=== PATIENT | male | born 1980 | race Caucasian/White ===

== ENCOUNTER 2020-02-12 17:38 | Emergency (ER) | payer OTHER ==
[~2020-02-12] VITALS: Ht 177.8 cm; Wt 132.4 kg
[~2020-02-12 17:38] MED LIST: BRINTELLIX20 MG; ERGO400; LISI20; Omeprazole20 M1
[2020-02-12 18:25] LABS: Calcium, Ionized (POC) 1.17 mmol/L (1.10-1.46); Chloride (POC) 103 mmol/L (98-108); Creatinine (POC) 1.1 mg/dL (0.8-1.3); Glucose (ISTAT POC) 198 mg/dL (70-99); Potassium (POC) 4.1 mmol/L (3.5-5.5); Sodium (POC) 133 mmol/L (135-148); Total CO2 (POC) 20 mmol/L (21-32)
[2020-02-12 18:26] LABS: BASOPHILS ABSOLUTE AUTO 0.12 K/mm3 (0.00-0.23); BASOPHILS PERCENT AUTO 1 % (0-2); EOSINOPHILS ABSOLUTE AUTO 0.33 K/mm3 (0.00-0.68); EOSINOPHILS PERCENT AUTO 3 % (0-6); Hematocrit 45.5 % (37.0-53.0); Hemoglobin 14.7 g/dL (13.5-17.5); IMMATURE GRAN PERCENT AUTO 5 % (0-1); LYMPHOCYTES ABSOLUTE AUTO 2.69 K/mm3 (0.84-5.20); LYMPHOCYTES PERCENT AUTO 25 % (21-46); MONOCYTES ABSOLUTE AUTO 0.87 K/mm3 (0.16-1.47); MONOCYTES PERCENT AUTO 8 % (4-13); Mean Corpuscular HGB 28.3 pg (26.0-34.0); Mean Corpuscular HGB Conc 32.3 g/dL (31.5-36.5); Mean Corpuscular Volume 88 fL (80-100); Mean Platelet Volume 8.9 fL (9.1-12.4); NEUTROPHILS ABSOLUTE AUTO 6.48 K/mm3 (1.96-9.15); NEUTROPHILS PERCENT AUTO 59 % (41-73); Platelet Count 384 K/mm3 (150-400); RDW Coefficient Variation 13.7 % (11.7-14.2); RDW Standard Deviation 43.8 fL (35.1-46.3); Red Blood Cell Count 5.19 M/mm3 (4.30-5.90); White Blood Cell Count 10.99 K/mm3 (4.00-11.30)
[2020-02-12 18:44] LABS: Alanine Aminotransfer (ALT/SGP 74 U/L (12-78); Albumin, Blood 3.6 g/dL (3.4-5.0); Albumin/Globulin Ratio 0.7 (0.8-1.8); Alk Phos 113 U/L (50-136); Anion Gap 10 mmol/L (6-16); Aspartate Aminotrans (AST/SGOT 54 U/L (12-37); Bilirubin, Total 0.5 mg/dL (0.1-1.0); Blood Urea Nitrogen 18 mg/dL (8-24); Bun/Creatinine Ratio 15.4 (12.0-20.0); CO2, Blood 21 mmol/L (21-32); Calcium, Blood 10.3 mg/dL (8.5-10.1); Chloride, Blood 101 mmol/L (98-108); Creatinine, Blood 1.17 mg/dL (0.60-1.20); Globulin, Blood 5.3 g/dL (2.2-4.0); Glomerular Filtration Rate >60 (60-); Glucose, Blood 193 mg/dL (70-99); Potassium, Blood 4.1 mmol/L (3.5-5.5); Sodium, Blood 132 mmol/L (136-145); Total Protein, Blood 8.9 g/dL (6.4-8.2)
[2020-02-12] MEDS ORDERED: Percocet 10-321 EACH PO (21:11)
[2020-02-12] MEDS ORDERED: ONDA4ODT MM (21:11)
== END 2020-02-12 21:19 | disposition home or self-care (01) ==
LOC: ER 17:38
PROVIDERS: Emergency Medicine
DX: D73.5 Infarction of spleen (principal); R10.9 Unspecified abdominal pain; F41.9 Anxiety disorder, unspecified; M54.9 Dorsalgia, unspecified; G89.29 Other chronic pain; Z79.899 Other long term (current) drug therapy; Z98.84 Bariatric surgery status
CPT/HCPCS: 36415; 71260; 74177; 80047; 80053; 83690; 85014; 85025; 96361-59; 96374-59; 96375-59; 96376-59; 99284-25; A9270; J1170; J2270; J2405; J7030; Q9967

== ENCOUNTER 2020-02-29 00:29 | Day surgery (SDC) | payer OTHER ==
[~2020-02-29 00:29] MED LIST changes: +ONDA4ODT MM; +Percocet 10-321 EACH PO
[2020-03-02] MEDS ORDERED: DAPTOMYCIN350 MG IV (14:55)
== END 2020-02-29 14:25 | disposition home or self-care (01) ==
LOC: ATC 00:29
DX: K95.81 Infection due to other bariatric procedure (principal); B95.62 Methicillin resistant Staphylococcus aureus infection as the cause of diseases classified elsewhere
CPT/HCPCS: 96365; J0878

== ENCOUNTER 2020-03-01 00:05 | Day surgery (SDC) | payer OTHER ==
[2020-03-02] MEDS ORDERED: DAPTOMYCIN350 MG IV (14:55)
== END 2020-03-01 14:42 | disposition home or self-care (01) ==
LOC: ATC 00:05
DX: K95.81 Infection due to other bariatric procedure (principal); B95.62 Methicillin resistant Staphylococcus aureus infection as the cause of diseases classified elsewhere
CPT/HCPCS: 96365; J0878

== ENCOUNTER 2020-03-05 09:55 | Day surgery (SDC) | payer OTHER ==
[~2020-03-05 09:55] MED LIST changes: +DAPTOMYCIN350 MG IV
== END 2020-03-05 11:32 | disposition home or self-care (01) ==
LOC: ATC 09:55
DX: K95.81 Infection due to other bariatric procedure (principal); B95.62 Methicillin resistant Staphylococcus aureus infection as the cause of diseases classified elsewhere
CPT/HCPCS: 96365; J0878

== ENCOUNTER 2020-03-06 00:07 | Day surgery (SDC) | payer OTHER | END 2020-03-06 11:50 | disposition home or self-care (01) | LOC: ATC 00:07 | DX: K95.81 Infection due to other bariatric procedure (principal); B95.62 Methicillin resistant Staphylococcus aureus infection as the cause of diseases classified elsewhere | CPT/HCPCS: 96365; J0878 ==

== ENCOUNTER 2020-03-09 00:05 | Day surgery (SDC) | payer OTHER | END 2020-03-09 11:33 | disposition home or self-care (01) | LOC: ATC 00:05 | DX: K95.81 Infection due to other bariatric procedure (principal); B95.62 Methicillin resistant Staphylococcus aureus infection as the cause of diseases classified elsewhere | CPT/HCPCS: 96365; J0878 ==

== ENCOUNTER 2021-07-22 10:43 | Day surgery (SDC) | payer OTHER ==
[~2021-07-22] VITALS: Ht 175.3 cm; Wt 106.7 kg
[~2021-07-22 10:43] MED LIST changes: +ALLERCLEAR10 MG PO; +ALPR.5 PO; +B COMPLEX FORM0.4 MG PO; -BRINTELLIX20 MG; +BRINTELLIX20 MG PO; +ERGO50000 PO; +METF500 PO; -Omeprazole20 M1; +Omeprazole20 M1 PO; +PRAVASTATIN SOD10 MG PO; +ZOLP5 PO
--- NOTE | 2021-07-22 11:50 | NUR ---
07/22/21 1150 Tiara Aguilar ONE ATTEPMPTED BEIR BLOCK PLACEMENT IN RIGHT HAND, BY JAHAIRA BEIR BLOCK PLAC[facility]. PT TOLERATED BOTH ATTEMPTS WELL.
[2021-07-22] MEDS ORDERED: ALLEGRA ALLERGY60 MG PO (11:59)
--- NOTE | 2021-07-22 12:23 | NUR ---
07/22/21 1223 Yesy Sampson COMPLETE IN OR BY DR DSOUZA. PT RHODA, S.
== END 2021-07-22 13:40 | disposition home or self-care (01) ==
LOC: ORSCSDS 10:43
PROVIDERS: Orthopaedic Surgery
PROC: 01N50ZZ Release Median Nerve, Open Approach (ICD-10-PCS; principal; 2021-07-22 12:00)
DX: G56.01 Carpal tunnel syndrome, right upper limb (principal); I10 Essential (primary) hypertension; G47.33 Obstructive sleep apnea (adult) (pediatric); E11.9 Type 2 diabetes mellitus without complications; N18.9 Chronic kidney disease, unspecified; K21.9 Gastro-esophageal reflux disease without esophagitis; E78.5 Hyperlipidemia, unspecified; Z79.84 Long term (current) use of oral hypoglycemic drugs; Z79.899 Other long term (current) drug therapy
CPT/HCPCS: 82947; J0690; J1100; J2250; J2405; J2704; J3010; J7120

== ENCOUNTER 2021-09-16 13:46 | Day surgery (SDC) | payer OTHER ==
[~2021-09-16] VITALS: Ht 177.8 cm; Wt 109.0 kg
[~2021-09-16 13:46] MED LIST changes: +ALLEGRA ALLERGY60 MG PO
== END 2021-09-16 16:40 | disposition home or self-care (01) ==
LOC: ORSCSDS 13:46
PROVIDERS: Orthopaedic Surgery
PROC: 01S40ZZ Reposition Ulnar Nerve, Open Approach (ICD-10-PCS; principal; 2021-09-16 14:15)
PROC: 01N50ZZ Release Median Nerve, Open Approach (ICD-10-PCS; principal; 2021-09-16 14:15)
DX: G56.02 Carpal tunnel syndrome, left upper limb (principal); G56.22 Lesion of ulnar nerve, left upper limb; I10 Essential (primary) hypertension; G47.33 Obstructive sleep apnea (adult) (pediatric); K21.9 Gastro-esophageal reflux disease without esophagitis; E11.9 Type 2 diabetes mellitus without complications; Z79.899 Other long term (current) drug therapy; E66.9 Obesity, unspecified; Z68.34 Body mass index [BMI] 34.0-34.9, adult
CPT/HCPCS: 82947; J0171; J0690; J1100; J1885; J2250; J2405; J2704; J3010; J7120

== ENCOUNTER 2022-01-16 15:28 | Emergency (ER) | payer OTHER ==
[~2022-01-16] VITALS: Ht 175.3 cm; Wt 108.9 kg
[2022-01-16 16:34] LABS: BASOPHILS ABSOLUTE AUTO 0.15 K/mm3 (0.00-0.23); BASOPHILS PERCENT AUTO 1 % (0-2); EOSINOPHILS ABSOLUTE AUTO 0.46 K/mm3 (0.00-0.68); EOSINOPHILS PERCENT AUTO 3 % (0-6); Hematocrit 49.4 % (37.0-53.0); Hemoglobin 16.2 g/dL (13.5-17.5); IMMATURE GRAN ABSOLUTE AUTO 0.25 K/mm3 (0.00-0.10); IMMATURE GRAN PERCENT AUTO 1 % (0-1); LYMPHOCYTES ABSOLUTE AUTO 2.13 K/mm3 (0.84-5.20); LYMPHOCYTES PERCENT AUTO 12 % (21-46); MONOCYTES ABSOLUTE AUTO 0.87 K/mm3 (0.16-1.47); MONOCYTES PERCENT AUTO 5 % (4-13); Mean Corpuscular HGB 29.7 pg (26.0-34.0); Mean Corpuscular HGB Conc 32.8 g/dL (31.5-36.5); Mean Corpuscular Volume 91 fL (80-100); Mean Platelet Volume 9.3 fL (9.1-12.4); NEUTROPHILS ABSOLUTE AUTO 13.87 K/mm3 (1.96-9.15); NEUTROPHILS PERCENT AUTO 78 % (41-73); Platelet Count 259 K/mm3 (150-400); RDW Coefficient Variation 14.1 % (11.7-14.2); RDW Standard Deviation 46.8 fL (35.1-46.3); Red Blood Cell Count 5.45 M/mm3 (4.30-5.90); White Blood Cell Count 17.73 K/mm3 (4.00-11.30)
[2022-01-16 16:52] LABS: Albumin, Blood 3.9 g/dL (3.4-5.0); Bilirubin, Total 0.5 mg/dL (0.1-1.0); Bun/Creatinine Ratio 14.9 (12.0-20.0); Creatinine, Blood 0.94 mg/dL (0.60-1.20); Globulin, Blood 4.1 g/dL (2.2-4.0); Potassium, Blood 4.2 mmol/L (3.5-5.5)
[2022-01-16] MEDS ORDERED: ONDA4ODT MM (20:15)
== END 2022-01-16 20:44 | disposition home or self-care (01) ==
LOC: ER 15:28
PROVIDERS: Physician Assistant
DX: K21.9 Gastro-esophageal reflux disease without esophagitis (principal); K44.9 Diaphragmatic hernia without obstruction or gangrene; D72.829 Elevated white blood cell count, unspecified; F41.9 Anxiety disorder, unspecified; Z79.899 Other long term (current) drug therapy; Z79.84 Long term (current) use of oral hypoglycemic drugs; Z98.84 Bariatric surgery status
CPT/HCPCS: 36415; 71046; 74177; 80053; 83735; 85025; J2405; J7030; Q9967

== ENCOUNTER 2022-04-04 10:11 | Day surgery (SDC) | payer OTHER ==
[~2022-04-04] VITALS: Ht 175.3 cm; Wt 111.2 kg
[2022-04-04] MEDS ORDERED: FAMO20 (10:40)
--- NOTE | 2022-04-04 12:33 | NUR ---
04/04/22 1233 Reena Isaacs TIME OUT TO VERIFY CORRECT PT, SITE, PROCEEDURE AND ALLERGIES. PT ELECTED TO PROCEED WTIH SHOULDER BLOCK. RELEAXING MEDICATION PROVIDED BY DR. REAVES AT 1220. PT TOLERATED WELL. VITAL SIGNS STABLE THROUGHOUT THE PROCEEDURE
--- NOTE | 2022-04-04 13:04 | NUR ---
04/04/22 1304 Yesy Sampson 10MLS OF LOCAL POURED ONTO FIELD FOR USE DURING CASE. 1MG OF EPI ADDED TO 3 BAGS OF 3000ML OF LR TO USE FOR IRRIGATION DURING CASE.
--- NOTE | 2022-04-04 14:27 | NUR ---
04/04/22 1427 Mike Talbot PTIS DOING GREAT, VVS NO PAIN NO NAUSEA.
== END 2022-04-04 14:43 | disposition home or self-care (01) ==
LOC: ORSCSDS 10:11
PROVIDERS: Orthopaedic Surgery
PROC: 3E0U3GC Introduction of Other Therapeutic Substance into Joints, Percutaneous Approach (ICD-10-PCS; principal; 2022-04-04 11:45)
PROC: 0LQ24ZZ Repair Left Shoulder Tendon, Percutaneous Endoscopic Approach (ICD-10-PCS; principal; 2022-04-04 11:45)
PROC: 0RNK4ZZ Release Left Shoulder Joint, Percutaneous Endoscopic Approach (ICD-10-PCS; principal; 2022-04-04 11:45)
DX: M75.112 Incomplete rotator cuff tear or rupture of left shoulder, not specified as traumatic (principal); M75.22 Bicipital tendinitis, left shoulder; M75.42 Impingement syndrome of left shoulder; E11.9 Type 2 diabetes mellitus without complications; G47.33 Obstructive sleep apnea (adult) (pediatric); K21.9 Gastro-esophageal reflux disease without esophagitis; E66.9 Obesity, unspecified; Z68.36 Body mass index [BMI] 36.0-36.9, adult; Z79.84 Long term (current) use of oral hypoglycemic drugs; Z79.899 Other long term (current) drug therapy
CPT/HCPCS: 29827; 29826; 0232T; 82947; C1713; J0171; J0690; J1100; J2250; J2405; J2704; J3010; J7120

== ENCOUNTER 2022-12-29 10:34 | Day surgery (SDC) | payer OTHER ==
[~2022-12-29] VITALS: Ht 177.8 cm; Wt 225.0 kg
[~2022-12-29 10:34] MED LIST changes: +FAMO20
--- NOTE | 2022-12-29 11:21 | NUR ---
12/29/22 1121 Tiara Aguilar CALL LIGHT WITHIN REACH. , BENITA, AT BEDSIDE.
--- NOTE | 2022-12-29 13:36 | NUR ---
12/29/22 1336 Gabriella Bustillos 0.1ML OF EPI 1MG/ML ADDED TO 20ML ROPIVICAINE 0.5% TO CREATE A LOCAL SOLUTION OF ROPIVIVIANE 0.5% WITH EPI 1:200,000.
[2022-12-29 14:56] VITALS: BP 141/87
== END 2022-12-29 15:30 | disposition home or self-care (01) ==
LOC: ORSCSDS 10:34
PROVIDERS: Orthopaedic Surgery
PROC: 01S40ZZ Reposition Ulnar Nerve, Open Approach (ICD-10-PCS; principal; 2022-12-29 12:00)
DX: G56.21 Lesion of ulnar nerve, right upper limb (principal); E11.9 Type 2 diabetes mellitus without complications; K21.9 Gastro-esophageal reflux disease without esophagitis; Z79.84 Long term (current) use of oral hypoglycemic drugs; Z79.899 Other long term (current) drug therapy
CPT/HCPCS: 82947; A9270; J0171; J0690; J1100; J2250; J2405; J2704; J2795; J3010; J7120

== ENCOUNTER 2023-01-26 11:48 | Day surgery (SDC) | payer OTHER ==
[~2023-01-26] VITALS: Ht 177.8 cm; Wt 102.3 kg
[2023-01-26] MEDS ORDERED: SULFAMETHOXAZO1 EAC1 PO (12:18)
[2023-01-26 15:30] VITALS: BP 131/97
--- NOTE | 2023-01-26 16:05 | NUR ---
01/26/23 1605 Mike Talbot IV REMOVED INTACT. SITE WNL. PT REPORTED 4/10 PAIN UPON DISCHARGE BUT DESCRIBED PAIN TOLERABLE.
== END 2023-01-26 16:00 | disposition home or self-care (01) ==
LOC: ORSCSDS 11:48
PROVIDERS: Orthopaedic Surgery
PROC: 0JBG0ZZ Excision of Right Lower Arm Subcutaneous Tissue and Fascia, Open Approach (ICD-10-PCS; principal; 2023-01-26 13:00)
DX: S51.0 Open wound of elbow (principal); G47.33 Obstructive sleep apnea (adult) (pediatric); E11.9 Type 2 diabetes mellitus without complications; E78.00 Pure hypercholesterolemia, unspecified; F32.A Depression, unspecified; Z79.899 Other long term (current) drug therapy; K21.9 Gastro-esophageal reflux disease without esophagitis; Z98.84 Bariatric surgery status; Z79.84 Long term (current) use of oral hypoglycemic drugs
CPT/HCPCS: 82947; 87070; 87075; 87205; A9270; J0690; J1100; J2405; J2704; J3010; J7120

== ENCOUNTER 2023-04-15 01:30 | Inpatient (IN) | payer OTHER ==
[~2023-04-15] VITALS: Ht 177.8 cm; Wt 106.2 kg
[~2023-04-15 01:30] MED LIST changes: +SULFAMETHOXAZO1 EAC1 PO
[2023-04-15 02:43] LABS: BASOPHILS ABSOLUTE AUTO 0.06 K/mm3 (0.00-0.23); BASOPHILS PERCENT AUTO 0 % (0-2); EOSINOPHILS ABSOLUTE AUTO 0.24 K/mm3 (0.00-0.68); EOSINOPHILS PERCENT AUTO 2 % (0-6); Hematocrit 42.6 % (37.0-53.0); Hemoglobin 14.7 g/dL (13.5-17.5); IMMATURE GRAN ABSOLUTE AUTO 0.14 K/mm3 (0.00-0.10); IMMATURE GRAN PERCENT AUTO 1 % (0-1); LYMPHOCYTES PERCENT AUTO 7 % (21-46); MONOCYTES ABSOLUTE AUTO 1.14 K/mm3 (0.16-1.47); MONOCYTES PERCENT AUTO 8 % (4-13); Mean Corpuscular HGB 29.5 pg (26.0-34.0); Mean Corpuscular HGB Conc 34.5 g/dL (31.5-36.5); Mean Corpuscular Volume 86 fL (80-100); NEUTROPHILS ABSOLUTE AUTO 11.37 K/mm3 (1.96-9.15); NEUTROPHILS PERCENT AUTO 82 % (41-73); Platelet Count 308 K/mm3 (150-400); RDW Coefficient Variation 13.6 % (11.7-14.2); RDW Standard Deviation 42.3 fL (35.1-46.3); Red Blood Cell Count 4.98 M/mm3 (4.30-5.90); White Blood Cell Count 13.95 K/mm3 (4.00-11.30)
[2023-04-15 03:03] LABS: Albumin, Blood 3.5 g/dL (3.4-5.0); Albumin/Globulin Ratio 0.9 (0.8-1.8); Bun/Creatinine Ratio 13.7 (12.0-20.0); Calcium, Blood 8.7 mg/dL (8.5-10.1); Creatinine, Blood 0.73 mg/dL (0.60-1.20); Globulin, Blood 4.1 g/dL (2.2-4.0); Potassium, Blood 3.9 mmol/L (3.5-5.5); Total Protein, Blood 7.6 g/dL (6.4-8.2)
[2023-04-15 03:45] LABS: C-REACTIVE PROTEIN, EXT RANGE 12.3 mg/dL (0.000-0.300)
[2023-04-15 04:20] LABS: D-Dimer, Quantitative 4.95 mg/L FEU (0.00-0.52); International Normalized Ratio 1.09; Prothrombin Time Results 11.4 Sec (9.7-11.5)
[2023-04-15] MEDS ORDERED: METFORMIN HCL500 M2 (06:53)
[2023-04-15] MEDS ORDERED: [UNRECOGNIZED DRUG - CODE] (06:54)
[2023-04-15] MEDS ORDERED: ELIQUIS2.5 M1 (06:54)
[2023-04-15] MEDS ORDERED: Methocarbamol500 MG (06:55)
[2023-04-15 09:30] VITALS: BP 138/98
[2023-04-15 10:58] LABS: Performing Lab BLOODWORKS; Test Name ABID
[2023-04-15 15:40] VITALS: BP 129/81
--- NOTE | 2023-04-15 17:38 | NUR ---
SHIFT SUMMARY PATIENT IS ALERT AND ORIENTED. PATIENT HAS HAD NO ACUTE EVENTS THIS SHIFT. VITAL SIGNS REVIEWED. PATIENT IS A RECENT ADMIT TODAY. PATIENT HAS REPORTED PAIN AND MEDICATED PER EMAR. PATIENT HAS NOT COMPLAINED OF SOB, NAUSEA, OR VOMITTING. PATIENT HAS TOLERATED FULL LIQUID DIET. BED IN LOCKED AND LOWEST POSITION. CALL LIGHT IN PLACE. WILL MONITOR UNTIL SHIFT CHANGE.
--- NOTE | 2023-04-15 19:09 | NUR ---
NURSE NOTE AWAKE. CHEERFUL AFFECT. ALERT AND ORIENTED. O2 PER NC AT 1L/MIN. O2 SATS OVER 90%. NO NOTED SOB. WILL TITER O2 DOWN. O2 DROPPED TO 0L/MIN - ROOM AIR. WILL RE CHECK SATS FOR FOLLOW UP. RECEIVED FIRE IGNITION TEACHING EARLIER. CALL LIGHT IN REACH. WILL MONITOR
[2023-04-15 19:52] VITALS: BP 146/86
--- NOTE | 2023-04-16 03:56 | NUR ---
BASS FISHER SUMMARY VSS. WAS ADMITTED FOR GENREALIZED WEAKNESS AND FEVER. HAS BEEN AFEBRILE THIS SHIFT. REMAINS WEAK, BUT ABLE TO AMBULATE ABOUT ROOM WITHOUT NOTED DISTRESS. WAS VISITED BY FAMILY MEMBERS EARLIER, REPORTED THAT PT NEEDS TO BE ON HIGH PROTEIN, LOW SUGAR LIQUID DIET SINCE HE HAD RECENT GASTRIC SURGERY. VOICED SHE WOULD RETURN TOMORROW AND WOULD PROBABLY DISCUSS IT WITH AM STAFF/DIETITICIAN THEN. RECEIVING ANTIBIOTICS AND ANALGESICS SEE MAR FOR DETAILS. NOTED DIMINISHED LUNG SOUNDS OF RIGHT SIDE PER AUSCULTATION. ALERT AND ORIENTED. HAS BEEN RESTING QUIETLY WITH FEW INTERRUPTIONS. CALL LIGHT IN REACH. ON ROOM AIR AND O2 SATS REMAIN IN THE 90'S. WILL CONTINUE TO MONITOR
[2023-04-16 04:36] VITALS: BP 115/66
[2023-04-16 04:46] LABS: Vancomycin, Trough 9.5 ug/mL (5.0-10.0)
[2023-04-16 07:38] VITALS: BP 104/63
[2023-04-16 10:19] LABS: BASOPHILS ABSOLUTE AUTO 0.03 K/mm3 (0.00-0.23); BASOPHILS PERCENT AUTO 0 % (0-2); EOSINOPHILS ABSOLUTE AUTO 0.28 K/mm3 (0.00-0.68); EOSINOPHILS PERCENT AUTO 3 % (0-6); Hematocrit 37.2 % (37.0-53.0); Hemoglobin 12.5 g/dL (13.5-17.5); IMMATURE GRAN ABSOLUTE AUTO 0.16 K/mm3 (0.00-0.10); IMMATURE GRAN PERCENT AUTO 2 % (0-1); LYMPHOCYTES ABSOLUTE AUTO 1.02 K/mm3 (0.84-5.20); LYMPHOCYTES PERCENT AUTO 10 % (21-46); MONOCYTES ABSOLUTE AUTO 1.05 K/mm3 (0.16-1.47); MONOCYTES PERCENT AUTO 10 % (4-13); Mean Corpuscular HGB 29.5 pg (26.0-34.0); Mean Corpuscular HGB Conc 33.6 g/dL (31.5-36.5); Mean Corpuscular Volume 88 fL (80-100); Mean Platelet Volume 9.5 fL (9.1-12.4); NEUTROPHILS ABSOLUTE AUTO 7.88 K/mm3 (1.96-9.15); NEUTROPHILS PERCENT AUTO 76 % (41-73); Platelet Count 258 K/mm3 (150-400); RDW Coefficient Variation 13.5 % (11.7-14.2); RDW Standard Deviation 43.5 fL (35.1-46.3); Red Blood Cell Count 4.24 M/mm3 (4.30-5.90); White Blood Cell Count 10.42 K/mm3 (4.00-11.30)
[2023-04-16 10:40] LABS: Albumin/Globulin Ratio 0.8 (0.8-1.8); Bilirubin, Total 0.7 mg/dL (0.1-1.0); Bun/Creatinine Ratio 8.2 (12.0-20.0); Calcium, Blood 8.7 mg/dL (8.5-10.1); Creatinine, Blood 0.85 mg/dL (0.60-1.20); Globulin, Blood 3.8 g/dL (2.2-4.0); Potassium, Blood 4.2 mmol/L (3.5-5.5); Total Protein, Blood 6.8 g/dL (6.4-8.2)
[2023-04-16 16:07] VITALS: BP 147/89
--- NOTE | 2023-04-16 16:22 | NUR ---
SHIFT SUMMARY PATIENT IS ALERT AND ORIENTED. PATIENT HAS NOT HAD AND ACUTE EVENTS THIS SHIFT. VITAL SIGNS REVIEWED. PATIENT IS STILL ON FULL LIQUIDS. PATIENT HAS SEEN DIETITION PER PT REQUEST AND DIET UPDATED. PATIENT HAS COMPLAINED OF PAIN AND HEARTBURN, MEDICATED PER EMAR. PATIENT IS DISCONNECTED FROM FLUIDS PER PATIENT REQUEST DUE TO ENOUGH PO INTAKE. BED IN LOCKED AND LOWEST POSITION. CALL LIGHT IN PLACE. WILL MONITOR UNTIL SHIFT CHANGE.
--- NOTE | 2023-04-16 19:47 | NUR ---
NURSE NOTE AWAKE. UP AD MELIDA. RECEIVED ZOFRAN AND PAIN MED PER REQUEST. VOICED ABLE TO DRINK MORE THAN YESTERDAY BUT STILL HAVING SOME DISCOMFORT. VISITED. JOKES WITH NURSE. RECEIVED FIRE IGNITION/PREVENTION TEACHING EARLIER. CALL LIGHT IN REACH. WILL CONTINUE TO MONITOR
[2023-04-16 21:16] VITALS: BP 139/90
--- NOTE | 2023-04-17 03:31 | NUR ---
GROUNDS MANAGER SUMMARY BP SLIGHTLY ELEVATED, OTHERWISE VSS. TOLERATING PO FLUIDS BETTER THAN NOTED 24 HR AGO, BUT STILL HAVING SOME NAUSEA AND ABD PAIN. RECEIVED ZOFRAN AND PAIN MEDS, MEDICATIONS EFFECTIVE. VISITED EARLIER. CONTINUES TO RECEIVE IV ANTIBIOTICS - SEE NOV FOR DETAILS. HAS BEEN RESTING QUIETLY WITH FEW INTERUPTIONS SINCE HS. UP AD MELIDA, LESS FATIGUED THAN NOTED YESTERDAY. CALL LIGHT IN REACH. WILL CONTINUE TO MONITOR.
[2023-04-17 04:33] LABS: Vancomycin, Trough 13.9 ug/mL (5.0-10.0)
[2023-04-17 05:19] VITALS: BP 98/61
[2023-04-17 05:36] LABS: BASOPHILS ABSOLUTE AUTO 0.04 K/mm3 (0.00-0.23); BASOPHILS PERCENT AUTO 0 % (0-2); EOSINOPHILS ABSOLUTE AUTO 0.56 K/mm3 (0.00-0.68); EOSINOPHILS PERCENT AUTO 6 % (0-6); Hematocrit 35.2 % (37.0-53.0); Hemoglobin 11.8 g/dL (13.5-17.5); IMMATURE GRAN ABSOLUTE AUTO 0.16 K/mm3 (0.00-0.10); IMMATURE GRAN PERCENT AUTO 2 % (0-1); LYMPHOCYTES PERCENT AUTO 15 % (21-46); MONOCYTES ABSOLUTE AUTO 1.26 K/mm3 (0.16-1.47); MONOCYTES PERCENT AUTO 14 % (4-13); Mean Corpuscular HGB 29.4 pg (26.0-34.0); Mean Corpuscular HGB Conc 33.5 g/dL (31.5-36.5); Mean Corpuscular Volume 88 fL (80-100); NEUTROPHILS ABSOLUTE AUTO 5.92 K/mm3 (1.96-9.15); NEUTROPHILS PERCENT AUTO 63 % (41-73); Platelet Count 252 K/mm3 (150-400); RDW Coefficient Variation 13.5 % (11.7-14.2); RDW Standard Deviation 43.4 fL (35.1-46.3); Red Blood Cell Count 4.02 M/mm3 (4.30-5.90); White Blood Cell Count 9.34 K/mm3 (4.00-11.30)
[2023-04-17 05:58] LABS: Bun/Creatinine Ratio 9.6 (12.0-20.0); Calcium, Blood 8.3 mg/dL (8.5-10.1); Creatinine, Blood 0.83 mg/dL (0.60-1.20); Potassium, Blood 4.1 mmol/L (3.5-5.5)
[2023-04-17 07:18] VITALS: BP 101/48
[2023-04-17] MEDS ORDERED: AMOCLA875 PO (13:54)
--- NOTE | 2023-04-17 16:33 | NUR ---
DISCHARGE SUMMARY PT AXO PLEASANT AND COOPERATIVE WITH CARE. PT DISCHARGED TO HOME. PT LEFT ROOM PRIOR TO THIS NOTE VIA WHEELCHAIR WITH DISTRICT MANAGER PRIMARY [employer] SALES [employer]. ALL DISCHARGE INSTRUCTIONS DISCUSSED, ALL QUESTIONS ANSWERED. IV DC'D AND BELONGINGS RETURNED. PT AGREES TO FOLLOW UP WITH PCP ORDERED. PT ALSO AGREES TO GEM SETTER MEDICATIONS AND TAKE THEM PRESCIBED.
== END 2023-04-17 16:12 | disposition home or self-care (01) | DRG 200 ==
LOC: ER 01:30 → MEDS 01:32 → ENPENDDIS 04-17 13:49 → MEDS 04-17 16:12
PROVIDERS: Emergency Medicine; Internal Medicine; ADMIT Family Medicine
DX: J95.811 Postprocedural pneumothorax (principal); R65.10 Systemic inflammatory response syndrome (SIRS) of non-infectious origin without acute organ dysfunction; K21.9 Gastro-esophageal reflux disease without esophagitis; I10 Essential (primary) hypertension; E11.9 Type 2 diabetes mellitus without complications; F41.8 Other specified anxiety disorders; G89.18 Other acute postprocedural pain; M50.30 Other cervical disc degeneration, unspecified cervical region; E78.5 Hyperlipidemia, unspecified; G47.33 Obstructive sleep apnea (adult) (pediatric); E66.9 Obesity, unspecified; Z98.84 Bariatric surgery status; Z79.899 Other long term (current) drug therapy; Z79.84 Long term (current) use of oral hypoglycemic drugs; Z68.32 Body mass index [BMI] 32.0-32.9, adult
CPT/HCPCS: 36415; 71045; 71260; 74177; 80048; 80053; 80202; 82947; 83605; 83880; 84484; 85025; 85379; 85610; 85730; 86140; 93005; 93010; 94760; 96365-59; 96366; 96366-59; 96367-59; 96368; 96375; 96375-59; 96376-59; 99285-25; A9270; C9113; G0378; J0696; J1170; J2405; J3370; J7030; J7050; Q9967

== ENCOUNTER 2023-08-16 06:34 | Day surgery (SDC) | payer OTHER ==
[~2023-08-16] VITALS: Ht 177.8 cm; Wt 96.9 kg
[~2023-08-16 06:34] MED LIST changes: +AMOCLA875 PO; +ELIQUIS2.5 M1; +METFORMIN HCL500 M2; +Methocarbamol500 MG; +[UNRECOGNIZED DRUG - CODE]
[2023-08-16] MEDS ORDERED: Budeprion Xl300 MG PO (06:56)
[2023-08-16] MEDS ORDERED: FAMO20 PO (06:57)
--- NOTE | 2023-08-16 09:00 | NUR ---
08/16/23 0900 Netta Nunez PT ON TMAX BED IN BEACHCHAIR POSITION WITH WEDGE UNDER LEGS AND BUTTOCKS. HEAD IS ON HEADREST WITH FOAM HEADREST SECURING IT. LEFT ARM IS ON ARM BOARD WITH GEL PAD AND SAFETY STRAP. SHORT SIDE BOLSTERS ARE ON THE LEFT AND RIGHT SIDE OF ABDOMEN TO SECURE PT TO TMAX. TWO SAFETY STRAPS WITH GEL PADS UNDER THEM ON THIGHS AND BELOW THE KNEE TO SECURE TO BED
[2023-08-16 09:39] VITALS: BP 131/85
== END 2023-08-16 11:00 | disposition home or self-care (01) ==
LOC: ORSCSDS 06:34
PROVIDERS: Orthopaedic Surgery Sports Medicine
PROC: 0RBJ4ZZ Excision of Right Shoulder Joint, Percutaneous Endoscopic Approach (ICD-10-PCS; principal; 2023-08-16 08:00)
PROC: 0PB94ZZ Excision of Right Clavicle, Percutaneous Endoscopic Approach (ICD-10-PCS; principal; 2023-08-16 08:00)
DX: M19.011 Primary osteoarthritis, right shoulder (principal); M75.41 Impingement syndrome of right shoulder; M25.511 Pain in right shoulder; E11.9 Type 2 diabetes mellitus without complications; K21.9 Gastro-esophageal reflux disease without esophagitis; F41.9 Anxiety disorder, unspecified; E78.5 Hyperlipidemia, unspecified; I10 Essential (primary) hypertension; G47.33 Obstructive sleep apnea (adult) (pediatric); Z79.84 Long term (current) use of oral hypoglycemic drugs; Z79.899 Other long term (current) drug therapy
CPT/HCPCS: 82947; J0171; J0690; J1100; J1885; J2250; J2371; J2405; J2704; J2710; J3010; J7120

== ENCOUNTER 2024-06-22 21:47 | Emergency (ER) | payer OTHER ==
[~2024-06-22] VITALS: Ht 175.3 cm; Wt 90.7 kg
[~2024-06-22 21:47] MED LIST changes: +Budeprion Xl300 MG PO; +FAMO20 PO
[2024-06-23] MEDS ORDERED: Diphth,Pertuss(Acell),Tet Vac 0.5 ML VIAL IM ONE (02:00)
[2024-06-23] MEDS ORDERED: Acetaminophen 500 MG Tab PO ONE (02:00)
[2024-06-23 05:45] VITALS: BP 100/71
[2024-06-23] MEDS ORDERED: ACET500 PO (06:12)
== END 2024-06-23 06:20 | disposition home or self-care (01) ==
LOC: ER 21:47
DX: S32.039A Unspecified fracture of third lumbar vertebra, initial encounter for closed fracture (principal); E11.9 Type 2 diabetes mellitus without complications; I10 Essential (primary) hypertension; E78.5 Hyperlipidemia, unspecified; K21.9 Gastro-esophageal reflux disease without esophagitis; Z98.84 Bariatric surgery status; Z98.890 Other specified postprocedural states; Z79.84 Long term (current) use of oral hypoglycemic drugs; Z79.899 Other long term (current) drug therapy; W18.30XA Fall on same level, unspecified, initial encounter
CPT/HCPCS: 72131; 90471; 90715; 99283-25; A9270; Q9967

== ENCOUNTER 2025-01-06 06:03 | Day surgery (SDC) | payer OTHER ==
[~2025-01-06] VITALS: Ht 175.3 cm; Wt 92.9 kg
[~2025-01-06 06:03] MED LIST changes: +ACET500 PO
[2025-01-06] MEDS ORDERED: CeFAZolin Sodium 2,000 MG VIAL ONE (06:19)
[2025-01-06] MEDS ORDERED: Tranexamic Acid 100 ML IV ONE (06:20)
[2025-01-06] MEDS ORDERED: FentaNYL Citrate 50 MCG/ML 2 ML Injection ONE (06:32)
[2025-01-06] MEDS ORDERED: Sugammadex Sodium 200 MG/2ML SDV (100 MG/ML) ONE (06:32)
[2025-01-06] MEDS ORDERED: propofoL 40 ML IV ONE (06:32)
[2025-01-06] MEDS ORDERED: Midazolam HCl 1MG / ML 2ML Vial ONE (06:32)
[2025-01-06] MEDS ORDERED: Ondansetron HCl 2 MG / ML 2ML Vial ONE (06:33)
[2025-01-06] MEDS ORDERED: Phenylephrine HCl 100 MCG/ML-NS 10MLSYR (1MG/10ML) ONE (06:33)
[2025-01-06] MEDS ORDERED: Rocuronium Bromide 10 MG/ML 5ML Injection IV ONE ×2 (06:33→09:22)
[2025-01-06] MEDS ORDERED: Dexamethasone Sod Phos 10 MG/ML 1ML VIAL ONE (06:33)
[2025-01-06] MEDS ORDERED: LAMO25 (06:36)
[2025-01-06] MEDS ORDERED: Lactated Ringer's 1,000 ML IV ONE ×3 (06:51→10:00)
[2025-01-06] MEDS ORDERED: EPINEPhrine HCl 1 MG/ML 1ML Amp ONE (07:00)
[2025-01-06] MEDS ORDERED: Lidocaine 1%-Epineph 1:100000 20 ML MDV ONE (07:00)
--- NOTE | 2025-01-06 07:36 | NUR ---
01/06/25 0736 Charley Hdz NERVE BLOCK PERFORMED BY DR. DONIS. PT TOLERATED BLOCK WELL. VS MONITORED THROUGHOUT THE PROCEDURE. SP02 STABLE AT 99-100%. TIME OUT AT: 717 START TIME: 725 END TIME: 730
[2025-01-06] MEDS ORDERED: Glycopyrrolate 0.2 MG/ML 5ML VIAL ONE (08:24)
[2025-01-06] MEDS ORDERED: propofoL 20 ML IV ONE (09:14)
[2025-01-06] MEDS ORDERED: ePHEDrine Sulfate 50 MG/ML 1ML Injection ONE (09:25)
--- NOTE | 2025-01-06 10:27 | NUR ---
01/06/25 1027 KAIA JOYNER PT CAME OUT WITH ORAL AIRWAY. DR DONIS REMOVED ONCE IN PACU. PT WAS ON NASAL CANNULA AT 3L. I REPLACED IT WITH FACE TENT @ 10L. CURRENTLY O2 SAT IS 96%
--- NOTE | 2025-01-06 11:15 | NUR ---
01/06/[address] IN TO SPEAK WITH PATIENT. STATES THAT HE SENT RX TO [facility]. EATING AND DRINKING WO DIFF. O2 SAT CURRENTLY 965 ON RA
[2025-01-06 11:29] VITALS: BP 141/93
[2025-01-06] MEDS ORDERED: OxyCODONE HCL 5 MG TAB ONE (11:52)
== END 2025-01-06 12:11 | disposition home or self-care (01) ==
LOC: ORSCSDS 06:03
PROVIDERS: Orthopaedic Surgery Sports Medicine
PROC: 0LM24ZZ Reattachment of Left Shoulder Tendon, Percutaneous Endoscopic Approach (ICD-10-PCS; principal; 2025-01-06 07:30)
PROC: 0PBB4ZZ Excision of Left Clavicle, Percutaneous Endoscopic Approach (ICD-10-PCS; principal; 2025-01-06 07:30)
DX: M75.122 Complete rotator cuff tear or rupture of left shoulder, not specified as traumatic (principal); M75.42 Impingement syndrome of left shoulder; M25.512 Pain in left shoulder; I10 Essential (primary) hypertension; G47.33 Obstructive sleep apnea (adult) (pediatric); K21.9 Gastro-esophageal reflux disease without esophagitis; E11.9 Type 2 diabetes mellitus without complications; F41.9 Anxiety disorder, unspecified; Z79.84 Long term (current) use of oral hypoglycemic drugs; Z79.899 Other long term (current) drug therapy
CPT/HCPCS: 82947; A9270; C1713; J0171; J0690; J1100; J2250; J2371; J2405; J2704; J3010; J7120; Q4125

== ENCOUNTER 2025-06-30 10:54 | Emergency (ER) | payer OTHER ==
[~2025-06-30] VITALS: Ht 177.8 cm; Wt 91.6 kg
[~2025-06-30 10:54] MED LIST changes: +LAMO25
[2025-06-30 13:12] VITALS: BP 147/96
[2025-06-30] MEDS ORDERED: HYDROcodone 5-APAP 325 TAB PO ONE (14:35)
[2025-06-30] MEDS ORDERED: Norco 5-325 Ta1 EACH PO (14:45)
[2025-06-30] MEDS ORDERED: TIZA4 PO (15:02)
== END 2025-06-30 15:02 | disposition home or self-care (01) ==
LOC: ER 10:54
DX: M54.50 Low back pain, unspecified (principal); M25.512 Pain in left shoulder; Z98.1 Arthrodesis status; Z79.84 Long term (current) use of oral hypoglycemic drugs; Z79.899 Other long term (current) drug therapy
CPT/HCPCS: 70450; 72100; 73030; 99284-25; A9270